=== PATIENT | female | born 2000 | race Caucasian/White ===

== ENCOUNTER 2024-10-25 09:50 | Outpatient (CLI) | payer OTHER, SELFPAY ==
--- NOTE | ~2024-10-25 | XR_ITS ---
Left Knee Technique: AP, lateral, and sunrise views were obtained. Clinical History: Pain Findings: No acute fracture or dislocation is seen. Prior ORIF of distal femoral fracture which is no w healed, with compression plate and interlocking screws present.. Joint spaces are preserved without degenerative or erosive change. Soft tissues are unremarkable. No joint effusion is seen. Impression: No acute abnormality. Prior ORIF of the distal femur. Reviewed, dictated and finalized at location M. Impression: No acute abnormality. Prior ORIF of the distal femur.
== END 2024-10-25 09:51 | disposition home or self-care (01) ==
LOC: GOSHIMG 09:51
PROVIDERS: PCP Nurse Practitioner; Visit Provider Nurse Practitioner
DX: M25.562 Pain in left knee (principal); Z96.60 Presence of unspecified orthopedic joint implant
CPT/HCPCS: 73560